=== PATIENT | female | born 1935 | race Caucasian/White ===

== ENCOUNTER 2019-01-31 09:08 | Emergency (ER) | payer MEDICARE ==
[~2019-01-31] VITALS: Ht 157.4 cm; Wt 72.6 kg
--- NOTE | ~2019-01-31 | EKG ---
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
[~2019-01-31 09:08] MED LIST: ASPIRIN81 M1 PO; CARVEDILOL6.25 MG PO; HYDROCHLOROTHIA50 MG PO; MEGA B COMPLEX PO; MULTIPLE VITAMI1 CAP PO; PRAVACHOL80 MG PO; VICODIN ES 7501 TA1 PO; [UNRECOGNIZED DRUG - OTHER]
[2019-01-31] MEDS ORDERED: ARICEPT10 M1 PO (09:15)
[2019-01-31 09:29] LABS: BASO # 0.1 10*3/uL (0.0-0.1); BASO % 0.8 % (0.0-1.0); EOS % 0.3 % (1.0-4.0); HEMATOCRIT 45.9 % (37.0-47.0); HEMOGLOBIN 14.7 g/dl (12.0-16.0); LYMPH # 1.7 10*3/uL (1.3-4.4); LYMPH % 18.2 % (27.0-41.0); MEAN CELL VOLUME 87.6 fl (81.0-99.0); MEAN CORPUSCULAR HGB 28.1 pg (27.0-31.0); MEAN PLATELET VOLUME 9.7 fl (9.6-12.3); MONO # 0.5 10*3/uL (0.1-1.0); MONO % 5.7 % (3.0-9.0); NEUT # 6.9 10*3/uL (2.3-7.9); NEUT % 74.6 % (47.0-73.0); PLATELET COUNT AUTOMATED 317 10*3/uL (130-400); RED BLOOD COUNT 5.24 10*6/uL (4.10-5.10); RED CELL DISTRI WIDTH 12.9 % (0-14.5); WHITE BLOOD COUNT 9.3 10*3/uL (4.8-10.8)
[2019-01-31 09:55] LABS: ALBUMIN 3.2 gm/dl (3.1-4.5); ALKALINE PHOSPHATASE 98 U/L (45-117); BUN 19 mg/dl (7-24); CHLORIDE 106 mmol/L (98-107); CREATININE 1.27 mg/dL (0.55-1.02); POTASSIUM 3.8 mmol/L (3.5-5.1); SGOT/AST 15 IU/L (3-35); SGPT/ALT 11 U/L (12-78); SODIUM 140 mmol/L (136-145); TOTAL PROTEIN 7.5 gm/dL (6.4-8.2)
[2019-01-31 09:57] LABS: TROPONIN I < 0.015 ng/ml (<0.045)
[2019-01-31 10:03] LABS: ACT PARTIAL THROMBO TIME 22.7 SECONDS (20.8-31.5)
== END 2019-01-31 11:45 ==
LOC: ED 09:08
PROVIDERS: Emergency Medicine
DX: R53.1 Weakness (principal); R42 Dizziness and giddiness; Z79.899 Other long term (current) drug therapy; Z79.82 Long term (current) use of aspirin; Z90.49 Acquired absence of other specified parts of digestive tract

== ENCOUNTER 2020-05-26 18:12 | Emergency (ER) | payer MEDICARE ==
[~2020-05-26] VITALS: Wt 83.9 kg
[~2020-05-26 18:12] MED LIST changes: +ARICEPT10 M1 PO
== END 2020-05-26 19:28 | disposition short-term general hospital (02) ==
LOC: ED 18:12
DX: S06.5X9A Traumatic subdural hemorrhage with loss of consciousness of unspecified duration, initial encounter (principal); I10 Essential (primary) hypertension; E78.00 Pure hypercholesterolemia, unspecified; Z88.8 Allergy status to other drugs, medicaments and biological substances; X58.XXXA Exposure to other specified factors, initial encounter; Y93.89 Activity, other specified; Y92.89 Other specified places as the place of occurrence of the external cause; Y99.8 Other external cause status